=== PATIENT | male | born 1975 | race Caucasian/White ===

== ENCOUNTER 2018-04-20 01:29 | Emergency (ER) | payer OTHER, MEDICAID, SELFPAY ==
[2018-04-20 01:47] VITALS: BP 99/51; PULSE 81; RESP 20; TEMP 36.9; O2SAT 97; BMI 40.2
--- NOTE | 2018-04-20 01:57 | ED.BACK ---
HPI - Back Pain/Injury General Chief Complaint: Back Pain/Injury Stated Complaint: on dialysis, back pain, recent surgery Time Seen by Provider: 04/20/18 01:57 Source: patient Mode of arrival: ambulatory Limitations: no limitations History of Present Illness HPI Narrative: The patient presents with left lower back pain that started yesterday. The pain is judged as 5/10 on a 1-10 scale. With this he has had chills but no fever. He is eating. He is taking fluids well. He has a colostomy in place. Last month he suffered a bowel perforation from diverticulitis. He became septic, and was released from [facility] never it only days ago after a prolonged hospitalization, that included the colostomy. He also has a history of kidney stones. He has no scrotal tenderness, dysuria or hematuria associated with this pain. Related Data Home Medications Medication Instructions Recorded Confirmed lamotrigine [Lamictal] 100 mg PO BID #0 10/08/16 04/20/18 citalopram 20 mg PO DAILY 04/20/18 04/20/18 furosemide 80 mg PO DAILY 04/20/18 04/20/18 lorazepam 0.5 mg PO DAILY 04/20/18 04/20/18 metoprolol tartrate 75 mg PO DAILY 04/20/18 04/20/18 Previous Rx's Medication Instructions Recorded albuterol sulfate [Ventolin HFA] 2 puff INH QID #1 ea 04/19/17 Allergies Allergy/AdvReac Type Severity Reaction Status Date / Time acetaminophen [From PERCOCET] Allergy Intermediate Unverified 08/13/17 12:44 oxycodone [From PERCOCET] Allergy Intermediate Unverified 08/13/17 12:44 pineapple [PINEAPPLE] Allergy Unknown Unverified 08/13/17 12:44 Review of Systems Review of Systems All systems reviewed & are unremarkable except as noted in HPI and below Constitutional Reports chills, Denies fever(s), Denies lethargy and Reports weakness ENT Ears, Nose, Mouth, and Throat: Denies mouth pain, Denies neck pain and Denies sore throat Cardiovascular Denies chest pain, Denies irregular heart rhythm, Denies lightheadedness, Denies palpitations, Denies dyspnea, Denies dyspnea on exertion and Denies orthopnea Respiratory Denies cough, Denies dyspnea, Denies dyspnea on exertion and Denies wheezing Gastrointestinal Gastrointestinal: Denies abdominal pain, Denies change in bowel habits, Denies nausea and Denies vomiting Genitourinary Denies hematuria, Denies genital pain, Denies dysuria, Reports flank pain, Denies urinary frequency and Denies urinary urgency Musculoskeletal Reports as per HPI, Reports back pain and Denies neck pain Integumentary/Breasts Denies erythema and Denies rash Neurologic Reports weakness Psychiatric Denies anxiety and Denies depression Endocrine Denies palpitations Allergic/Immunologic Denies wheezing PFSH Medical History Colostomy present (Acute) Depression (Acute) Diverticulitis of colon with perforation (Acute) Hypertension (Acute) Kidney stone (Acute) Social History Smoking Status: Never smoker Exam Initial Vital Signs Initial Vital Signs: Vital Signs Temperature 98.4 F 04/20/18 01:47 Pulse Rate 81 04/20/18 01:47 Respiratory Rate 20 04/20/18 01:47 Blood Pressure 99/51 L 04/20/18 01:47 Pulse Oximetry 97 04/20/18 01:47 Const General: cooperative, well developed and No acute distress Nutritional Appearance: well nourished Orientation: alert, awake, oriented x3 and not confused [facility] Head: normocephalic and atraumatic Nose: external nose normal Face and sinus: face symmetric Mouth: oral mucosae normal and moist mucous membranes Throat: posterior oropharynx normal Eyes Conjunctivae: conjunctivae normal Chest Chest: normal inspection of the chest Resp Effort & Inspection: normal respiratory effort and able to speak in complete sentences Auscultation: clear to auscultation bilaterally, no rales, no rhonchi and no wheezes Cardio Rate: regular rate Rhythm: regular rhythm Heart Sounds: S1 normal, S2 normal, no click, no gallops, no murmurs and no rubs Pulses: normal peripheral pulses GI Inspection: non-distended and other (Colostomy in the left mid abdomen) Palpation: soft, no hepatosplenomegaly, No guarding, No pulsatile mass and No tender Auscultation: normal bowel sounds Back/Spine/Pelvis Back: No CVA tenderness Skin General: no rashes or lesions noted, No jaundice and No petechiae Neuro General: alert, oriented x3 and no focal motor deficits Speech: speech normal Extrem General: full ROM and no clubbing, cyanosis or edema Course Orders Ordered: ED Orders 04/20/18 02:10 Complete Blood Count AUTO DIFF Stat Comprehensive Metabolic Panel Stat Lactate (Lactic Acid) Stat Lipase Stat Prothrombin Time INR Stat 04/20/18 03:33 CT abdomen pelvis w con Stat Sodium Chloride (Normal Saline 0.9%) 1,000 mls @ 250 mls/hr IV CONT JENNIFER Last Admin: 04/20/18 03:50 Dose: 250 mls/hr Discontinued Medications Hydromorphone HCl (Dilaudid) 1 mg IV NOW ONE Stop: 04/20/18 02:30 Last Admin: 04/20/18 02:31 Dose: 1 mg Sodium Chloride (Normal Saline 0.9%) 1,000 mls @ 1,000 mls/hr IV BOLUS ONE Stop: 04/20/18 03:02 Last Infusion: 04/20/18 03:51 Dose: 0 mls/hr Admin: 04/20/18 02:25 Dose: 1,000 mls/hr Vital Signs - 8 hr 04/20/18 01:47 04/20/18 02:18 04/20/18 03:43 Temperature 98.4 F Pulse Rate 81 80 82 Respiratory Rate 20 17 16 Blood Pressure 99/51 L Blood Pressure [Right Arm] 117/84 105/56 L Pulse Oximetry 97 99 97 04/20/18 04:52 Temperature Pulse Rate 83 Respiratory Rate 17 Blood Pressure Blood Pressure [Right Arm] 127/75 Pulse Oximetry 98 MDM - Back Pain/Injury Lab Data Result diagrams: 04/20/18 02:10 04/20/18 02:10 Lab Results 04/20/18 04/20/18 04/20/18 Range/Units 02:10 02:10 02:10 WBC 8.5 (4.5-11.0) X10^3/uL RBC 3.79 L (4.5-5.9) X10^6/uL Hgb 10.4 L (13.5-17.5) g/dL Hct 30.4 L (41-53) % MCV 80.0 (80-100) fL MCH 27.5 (26-34) PG MCHC 34.3 (30-36) % RDW 15.3 H (11.6-14.8) % Plt Count 346 (150-400) X10^3/uL Neut % (Auto) 61.7 (50-75) % Lymph % (Auto) 28.8 (25-40) % [place] % (Auto) 7.5 (3-14) % Eos % (Auto) 1.3 L (2-4) % Baso % (Auto) 0.7 (0-2) % Neut # (Auto) 5200 (8148-3036) /uL PT 12.7 (10.1-12.7) SECONDS INR 1.1 (0.9-1.3) Sodium 141 (137-145) mmol/L Potassium 3.9 (3.4-5.1) mmol/L Chloride 98 (98-107) mmol/L Carbon Dioxide 26 (22-32) mmol/L BUN 26 H (9-20) mg/dL Creatinine 1.50 H (0.66-1.25) mg/dL Estimated GFR 50.8 L (>60) mL/min BUN/Creatinine Ratio 17.3 (6-22) Glucose 102 H (70-100) mg/dL Lactate (0.7-2.1) mmol/L Calcium 9.2 (8.4-10.2) mg/dL Total Bilirubin 0.4 (0.2-1.3) mg/dL AST 29 (17-59) IU/L ALT 38 (21-72) IU/L Alkaline Phosphatase 109 (38-126) U/L Total Protein 7.7 (6.3-8.2) g/dL Albumin 4.1 (3.5-5.0) g/dL Globulin 3.6 (1.7-4.1) g/dL Albumin/Globulin Ratio 1.1 (1.0-2.8) Lipase 360 H (23-300) U/L // Range/Units 02:10 WBC (4.5-11.0) X10^3/uL RBC (4.5-5.9) X10^6/uL Hgb (13.5-17.5) g/dL Hct (41-53) % MCV (80-100) fL MCH (26-34) PG MCHC (30-36) % RDW (11.6-14.8) % Plt Count (150-400) X10^3/uL Neut % (Auto) (50-75) % Lymph % (Auto) (25-40) % [place] % (Auto) (3-14) % Eos % (Auto) (2-4) % Baso % (Auto) (0-2) % Neut # (Auto) (9031-5342) /uL PT (10.1-12.7) SECONDS INR (0.9-1.3) Sodium (137-145) mmol/L Potassium (3.4-5.1) mmol/L Chloride (98-107) mmol/L Carbon Dioxide (22-32) mmol/L BUN (9-20) mg/dL Creatinine (0.66-1.25) mg/dL Estimated GFR (>60) mL/min BUN/Creatinine Ratio (6-22) Glucose (70-100) mg/dL Lactate 1.3 (0.7-2.1) mmol/L Calcium (8.4-10.2) mg/dL Total Bilirubin (0.2-1.3) mg/dL AST (17-59) IU/L ALT (21-72) IU/L Alkaline Phosphatase (38-126) U/L Total Protein (6.3-8.2) g/dL Albumin (3.5-5.0) g/dL Globulin (1.7-4.1) g/dL Albumin/Globulin Ratio (1.0-2.8) Lipase (23-300) U/L Urine Dip Bedside Urine Glucose Negative Bedside Urine Bilirubin - Negative Bedside Urine Ketone - Negative Urine Specific [place] 1.020 Bedside Urine Occult Blood - Negative Bedside Urine pH 6.0 Bedside Urine Protein - Negative Bedside Urine Urobilinogen - Negative Bedside Urine Nitrite - Negative Bedside Urine Leukocytes - Negative Esterase Imaging Data CT scan - abdomen: Radiologist's impression: Contact CT of the abdomen and pelvis shows postoperative findings of partial colectomy a left-sided colostomy. There is no evidence of bowel obstruction, appendicitis, free air or free fluid. Mild splenomegaly. Discharge Plan Departure Patient Disposition: Home Clinical Impression: Lumbago Instructions: DI for Low Back Pain Activity Restrictions/Additional Instructions: Tylenol 2 tablets every 4 hours as needed for pain. You may also use Advil, I would use this on a limited basis. Recheck with her doctor in 1-2 weeks if symptoms persist. Return here if needed. Prescriptions: No Action lamotrigine [Lamictal] 100 MG tablet 100 mg PO BID Qty: 0 RF: 0 albuterol sulfate [Ventolin HFA] 90 MCG/PUFF HFA aerosol inhaler 2 puff INH QID Qty: 1 RF: 0 citalopram 10 mg tablet 20 mg PO DAILY RF: 0 furosemide 80 mg tablet 80 mg PO DAILY RF: 0 lorazepam 0.5 mg tablet 0.5 mg PO DAILY RF: 0 metoprolol tartrate 50 mg tablet 75 mg PO DAILY RF: 0
[2018-04-20 02:18] VITALS: BP 117/84; PULSE 80; RESP 17; O2SAT 99
[2018-04-20 02:24] LABS: Add Manual Diff / Slide Review NO; Basophils Percent Auto 0.7 % (0-2); Eosinophils Percent Auto 1.3 % (2-4); Hematocrit 30.4 % (41-53); Hemoglobin 10.4 g/dL (13.5-17.5); Lymphocytes Percent Auto 28.8 % (25-40); Mean Corpuscular HGB Conc 34.3 % (30-36); Mean Corpuscular Hemoglobin 27.5 PG (26-34); Monocytes Percent Auto 7.5 % (3-14); Neutrophils Absolute Auto 5200 /uL (1500-7000); Neutrophils Percent Auto 61.7 % (50-75); Platelet Count 346 X10^3/uL (150-400); Red Blood Cell Count 3.79 X10^6/uL (4.5-5.9); Red Cell Distribution Width 15.3 % (11.6-14.8); White Blood Cell Count 8.5 X10^3/uL (4.5-11.0)
[2018-04-20] MEDS: SODIUM CHLORIDE 0.9% 1,000 ML 1000 ML IV (02:25)
[2018-04-20 02:31] LABS: INR 1.1 (0.9-1.3); Prothrombin Time 12.7 SECONDS (10.1-12.7)
[2018-04-20] MEDS: HYDROMORPHONE 1 MG INJ IV (02:31)
[2018-04-20 02:32] LABS: Alanine Aminotransferase 38 IU/L (21-72); Albumin 4.1 g/dL (3.5-5.0); Albumin Globulin Ratio 1.1 (1.0-2.8); Alkaline Phosphatase 109 U/L (38-126); Aspartate Aminotransferase 29 IU/L (17-59); BUN Creatinine Ratio 17.3 (6-22); Bilirubin Total 0.4 mg/dL (0.2-1.3); Blood Urea Nitrogen 26 mg/dL (9-20); Calcium 9.2 mg/dL (8.4-10.2); Carbon Dioxide 26 mmol/L (22-32); Chloride 98 mmol/L (98-107); Estimated Glomerular Filt Rate 50.8 mL/min (>60); Globulin 3.6 g/dL (1.7-4.1); Glucose 102 mg/dL (70-100); HEMOLYSIS < 15 (0-50); Lipase 360 U/L (23-300); Potassium 3.9 mmol/L (3.4-5.1); Sodium 141 mmol/L (137-145); Total Protein 7.7 g/dL (6.3-8.2)
[2018-04-20 02:33] LABS: Lactate (Lactic Acid) 1.3 mmol/L (0.7-2.1)
--- NOTE | 2018-04-20 03:33 | DI.CT.S_ITS ---
PROCEDURE: CT ABDOMEN PELVIS W CON INDICATIONS: left lower back pain, TECHNIQUE: After the administration of oral and intravenous contrast, 5 mm thick sections acquired from the diaphragms to the symphysis. 5 mm thick coronal and sagittal reformats were performed. For radiation dose reduction, the following was used: automated exposure control, adjustment of mA and/or kV according to patient size. COMPARISON: [facility], CT, KIDNEY/ URETER/BLADDER, 01/18/2017, 21:02. FINDINGS: Image quality: Excellent. ABDOMEN: Lung bases: Left posterior lower lobe consolidation is seen. There is background bibasilar atelectasis/scarring. Solid organs: Liver is normal in size and enhancement. Gallbladder negative. Biliary system is non-dilated. Pancreas enhances normally. Spleen is mildly enlarged. No adrenal nodules. Kidneys are normal in size and enhancement, without hydronephrosis. Peritoneum and bowel: Postsurgical changes related to left-sided colostomy. No abscess identified. No evidence of bowel obstruction. No free fluid or air. The appendix is within normal limits. On image 82 series 2 there is a possibly postoperative perirectal 10 mm hematoma versus complex seroma, although cannot entirely exclude lymph node. Nodes and vessels: No retroperitoneal or mesenteric adenopathy. Aorta and inferior vena cava are normal in caliber. Miscellaneous: No ventral hernias. PELVIS: Genitourinary: Bladder wall thickness is normal. Miscellaneous: Small bilateral fat containing inguinal hernias or adenopathy. Bones: No suspicious bony lesions. No vertebral body compression fractures. IMPRESSION: Left posterior lower lobe consolidation, which could reflect aspiration or pneumonia. Please correlate clinically. Postsurgical changes as above related to left-sided colostomy. 10 mm perirectal soft tissue attenuation which could represent postoperative seroma or hematoma, however cannot exclude lymph node. Recommend clinical correlation and continued surveillance on subsequent CT examinations. Normal appendix. No abscess. Mild splenomegaly. Dictated by: Alex Shannon M.D. on 04/20/2018 at 8:30 Approved by: Alex Shannon M.D. on 04/20/2018 at 8:41
[2018-04-20 03:43] VITALS: BP 105/56; PULSE 82; RESP 16; O2SAT 97
--- NOTE | 2018-04-20 03:43 | PC.NURSE ---
Oral contrast started 339
[2018-04-20] MEDS: SODIUM CHLORIDE 0.9% 1,000 ML 250 ML IV (03:50)
[2018-04-20 04:52] VITALS: BP 127/75; PULSE 83; RESP 17; O2SAT 98
[2018-04-20 05:28] VITALS: BP 129/80; PULSE 80; RESP 16; TEMP 36.6; O2SAT 97
== END 2018-04-20 05:20 | disposition home or self-care (01) ==
PROVIDERS: Emergency Provider Emergency Medicine
DX: M54.5 Low back pain (principal)
CPT/HCPCS: 36591; 74177; 80053; 81003; 83605; 83690; 85025; 85610; 96361; 96374; 99283; 99285; J1170; Q9967

== ENCOUNTER 2018-06-21 22:45 | Emergency (ER) | payer OTHER, MEDICAID, SELFPAY ==
[2018-06-21 23:01] VITALS: BP 140/81; PULSE 71; RESP 16; TEMP 36.4; O2SAT 96; BMI 40.7
[2018-06-22] VITALS (7 sets, daily range): BP systolic 128–151; BP diastolic 44–87; PULSE 68–78; RESP 15–18; TEMP 36.4; O2SAT 95–98
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
[2018-06-22] MEDS: HYDROMORPHONE 1 MG INJ IV ×2 (01:48→05:16)
[2018-06-22] MEDS: SODIUM CHLORIDE 0.9% 1,000 ML 200 ML IV (01:49)
[2018-06-22 02:03] LABS: Add Manual Diff / Slide Review NO; Basophils Absolute Auto 0 /uL (0-100); Basophils Percent Auto 0.7 % (0-2); Eosinophils Absolute Auto 100 /uL (0-450); Eosinophils Percent Auto 1.6 % (2-4); Hematocrit 35.4 % (41-53); Lymphocytes Absolute Auto 2400 /uL (1100-4500); Lymphocytes Percent Auto 34.8 % (25-40); Mean Corpuscular HGB Conc 33.8 % (30-36); Mean Corpuscular Hemoglobin 27.1 PG (26-34); Mean Corpuscular Volume 80.3 fL (80-100); Monocytes Absolute Auto 700 /uL (0-900); Monocytes Percent Auto 9.7 % (3-14); Neutrophils Absolute Auto 3600 /uL (1500-7000); Neutrophils Percent Auto 53.2 % (50-75); Platelet Count 253 X10^3/uL (150-400); Red Blood Cell Count 4.42 X10^6/uL (4.5-5.9); Red Cell Distribution Width 16.1 % (11.6-14.8); White Blood Cell Count 6.8 X10^3/uL (4.5-11.0)
[2018-06-22 02:10] LABS: Alanine Aminotransferase 20 IU/L (21-72); Albumin Globulin Ratio 1.2 (1.0-2.8); Alkaline Phosphatase 74 U/L (38-126); Aspartate Aminotransferase 24 IU/L (17-59); BUN Creatinine Ratio 10.9 (6-22); Bilirubin Total 0.4 mg/dL (0.2-1.3); Blood Urea Nitrogen 12 mg/dL (9-20); Calcium 8.9 mg/dL (8.4-10.2); Carbon Dioxide 26 mmol/L (22-32); Chloride 104 mmol/L (98-107); Estimated Glomerular Filt Rate > 60.0 mL/min (>60); Globulin 3.4 g/dL (1.7-4.1); Glucose 94 mg/dL (70-100); HEMOLYSIS < 15 (0-50); Sodium 138 mmol/L (137-145); Total Protein 7.4 g/dL (6.3-8.2)
[2018-06-22 02:13] LABS: Prothrombin Time 11.6 SECONDS (10.1-12.7)
[2018-06-22] MEDS: AMOXICILLIN/CLAV 875/125 MG 1 TAB PO (05:10)
[2018-06-22] MEDS: TRAMADOL 50 MG PREPACK 1 BOTTLE MISC (05:10)
== END 2018-06-22 05:33 | disposition home or self-care (01) ==
PROVIDERS: Emergency Provider Emergency Medicine
DX: S39.011A Strain of muscle, fascia and tendon of abdomen, initial encounter (principal); J18.1 Lobar pneumonia, unspecified organism; W23.0XXA Caught, crushed, jammed, or pinched between moving objects, initial encounter
CPT/HCPCS: 36591; 74177; 80053; 81003; 85025; 85610; 96361; 96374; 96376; 99283; 99285; J1170; Q9967

== ENCOUNTER 2020-10-16 14:49 | Emergency (ER) | payer OTHER, MEDICAID, SELFPAY ==
[2020-10-16 14:59] VITALS: BP 117/66; PULSE 72; RESP 18; TEMP 36.9; O2SAT 96
--- NOTE | 2020-10-16 15:05 | DI.RAD.S_ITS ---
PROCEDURE: XR CHEST 1V INDICATIONS: Chest pain TECHNIQUE: One view of the chest was acquired. COMPARISON: [facility], , CHEST 2 VIEW, 02/03/2017, 8:36. FINDINGS: Surgical changes and devices: None. Lungs and pleura: Lungs are clear. No pleural effusions or pneumothorax. Mediastinum: Mediastinal contours appear normal. Heart size is normal. Bones and chest wall: No suspicious bony lesions. Overlying soft tissues appear unremarkable. IMPRESSION: No acute cardiopulmonary process demonstrated radiographically. Dictated by: Anton Khan M.D. on 10/16/2020 at 15:26 Approved by: Anton Khan M.D. on 10/16/2020 at 15:30
[2020-10-16 15:51] LABS: Alanine Aminotransferase 31 IU/L (<50); Albumin 3.9 g/dL (3.5-5.0); Albumin Globulin Ratio 1.2 (1.0-2.8); Alkaline Phosphatase 75 U/L (38-126); Aspartate Aminotransferase 31 IU/L (17-59); BUN Creatinine Ratio 17.4 (6-22); Bilirubin Total 0.4 mg/dL (0.2-1.3); Blood Urea Nitrogen 19 mg/dL (9-20); Carbon Dioxide 26 mmol/L (22-32); Chloride 104 mmol/L (98-107); Creatine Kinase 51 U/L (55-170); Estimated Glomerular Filt Rate > 60.0 mL/min (>60); Globulin 3.3 g/dL (1.7-4.1); Glucose 101 mg/dL (70-100); HEMOLYSIS 39 (0-50); Lipase 79 U/L (23-300); Potassium 4.3 mmol/L (3.4-5.1); Sodium 139 mmol/L (137-145); Total Protein 7.2 g/dL (6.3-8.2)
[2020-10-16 16:02] LABS: Troponin I < 0.012 ng/mL (0.01-0.034)
[2020-10-16 16:05] LABS: Add Manual Diff / Slide Review NO; Basophils Absolute Auto 100 /uL (0-100); Basophils Percent Auto 0.7 % (0-2); Eosinophils Absolute Auto 100 /uL (0-450); Eosinophils Percent Auto 1.1 % (2-4); Hematocrit 43.3 % (41-53); Hemoglobin 14.5 g/dL (13.5-17.5); Lymphocytes Absolute Auto 2800 /uL (1100-4500); Mean Corpuscular HGB Conc 33.6 % (30-36); Mean Corpuscular Volume 83.2 fL (80-100); Monocytes Absolute Auto 600 /uL (0-900); Monocytes Percent Auto 7.1 % (3-14); Neutrophils Absolute Auto 4900 /uL (1500-7000); Neutrophils Percent Auto 58.1 % (50-75); Platelet Count 220 X10^3/uL (150-400); Red Cell Distribution Width 15.1 % (11.6-14.8); White Blood Cell Count 8.5 X10^3/uL (4.5-11.0)
[2020-10-16 19:36] VITALS: BP 103/59; BP 115/62; BP 98/59; PULSE 73; PULSE 78; PULSE 82
--- NOTE | 2020-10-16 19:55 | ED_ITS ---
HPI - General Adult General Chief complaint: Syncope Stated complaint: I stand up I fall down for a month Time Seen by Provider: 10/16/20 19:54 Source: patient Mode of arrival: Ambulatory Limitations: no limitations History of Present Illness HPI narrative: Patient is a 44-year-old male who is here with family for evaluation of episodes that have occasionally been happening over the past month. He states that he has periods of time where he becomes very lightheaded and dizzy and has to sit down. They very often happen when he is changing positions but is also happen when he has been walking and then stops suddenly. He denies any chest pain during the time. No shortness of breath. No palpitations. He describes the symptoms as more of a lightheadedness rather than a room spinning/vertigo sensation. No headaches. He does have a history of high blood pressure. Is on metoprolol but has not had any changes to this medication recently. Has not tried anything for his symptoms peer reason he is in the emergency department today is that prior to arrival he was sitting in a chair and stood up in the symptoms happened again so family persuaded him to come to the emergency department for evaluation. Related Data Home Medications Medication Instructions Recorded Confirmed lamotrigine [Lamictal] 100 mg PO BID #0 10/08/16 04/20/18 citalopram 20 mg PO DAILY 04/20/18 04/20/18 furosemide 80 mg PO DAILY 04/20/18 04/20/18 lorazepam 0.5 mg PO DAILY 04/20/18 04/20/18 metoprolol tartrate 75 mg PO DAILY 04/20/18 04/20/18 Previous Rx's Medication Instructions Recorded albuterol sulfate [Ventolin HFA] 2 puff INH QID #1 ea 04/19/17 amoxicillin-pot clavulanate 1 tab PO BID #14 tab 06/22/18 [Augmentin] tramadol 50 mg PO Q6H PRN #14 tab 06/22/18 Allergies Allergy/AdvReac Type Severity Reaction Status Date / Time acetaminophen [From PERCOCET] Allergy Intermediate Unverified 08/13/17 12:44 oxycodone [From PERCOCET] Allergy Intermediate Unverified 08/13/17 12:44 pineapple [PINEAPPLE] Allergy Unknown Unverified 04/11/18 12:44 Review of Systems Constitutional Constitutional: Denies fever(s) and Denies headache(s) Eyes Eyes: Reports system reviewed and no additional complaints, except as documented ENT Ears, Nose, Mouth, and Throat: Denies vertigo, Reports dizziness, Denies headache(s), Denies sinus pressure and Denies sore throat Cardiovascular Cardiovascular: Denies chest pain, Denies rapid heart rate and Denies dyspnea Respiratory Respiratory: Denies dyspnea Gastrointestinal Gastrointestinal: Reports system reviewed and no additional complaints, except as documented Musculoskeletal Musculoskeletal: Reports system reviewed and no additional complaints, except as documented Integumentary/Breasts Skin/Breast: Reports system reviewed and no additional complaints, except as documented Neurologic Neurologic: Denies vertigo, Reports dizziness and Denies headache(s) Hematologic/Lymphatic On Anticoagulants: No Allergic/Immunologic Allergic/Immunologic: Reports system reviewed and no additional complaints, except as documented Patient History Medical History Colostomy present Depression Diverticulitis of colon with perforation Hypertension Kidney stone Social History Smoking Status: Never smoker Smoking Status: Never smoker alcohol intake frequency: 0-2 drinks per day Substance Use Type: does not use Exam Initial Vital Signs Initial Vital Signs: Vital Signs Temperature 98.4 F 10/16/20 14:59 Pulse Rate 72 10/16/20 14:59 Respiratory Rate 18 10/16/20 14:59 Blood Pressure 117/66 10/16/20 14:59 Pulse Oximetry 96 10/16/20 14:59 Const General: cooperative and comfortable Limitations: mental status not altered [facility] Head: normal to inspection and normocephalic Resp Effort & Inspection: normal respiratory effort Auscultation: clear to auscultation bilaterally Cardio Rate: regular rate Rhythm: regular rhythm GI Inspection: non-distended Skin Lesions: no lesions Rashes: no rashes Neuro General: patient alert, patient awake and patient oriented x3 Cognition: normal cognition Speech: speech normal Extrem General: normal to inspection Psych Appearance: grossly normal and well kempt Course Orders Ordered: ED Orders 10/16/20 15:05 XR chest 1V Stat EKG-12 Lead Stat 10/16/20 15:32 Complete Blood Count AUTO DIFF Stat Comprehensive Metabolic Panel Stat Lipase Stat Troponin & CK Cardiac Panel Stat Vital Signs Vital signs: Vital Signs - 8 hr 10/16/20 19:36 Pulse Rate [Orthostatic Lying] 78 Pulse Rate [Orthostatic Sitting] 73 Pulse Rate [Orthostatic Standing] 82 Blood Pressure [Orthostatic Lying] 103/59 L Blood Pressure [Orthostatic Sitting] 98/59 L Blood Pressure [Orthostatic Standing] 115/62 Medical Decision Making Medical Records Medical records reviewed: Yes I reviewed the patient's medical records. Lab Data Lab results reviewed: Yes I reviewed the patient's lab results. Result diagrams: 10/16/20 15:32 10/16/20 15:32 Labs: Lab Results 10/16/20 10/16/20 Range/Units 15:32 15:32 WBC 8.5 (4.5-11.0) X10^3/uL RBC 5.20 (4.5-5.9) X10^6/uL Hgb 14.5 (13.5-17.5) g/dL Hct 43.3 (41-53) % MCV 83.2 (80-100) fL MCH 28.0 (26-34) PG MCHC 33.6 (30-36) % RDW 15.1 H (11.6-14.8) % Plt Count 220 (150-400) X10^3/uL Neut % (Auto) 58.1 (50-75) % Lymph % (Auto) 33.0 (25-40) % Pike % (Auto) 7.1 (3-14) % Eos % (Auto) 1.1 L (2-4) % Baso % (Auto) 0.7 (0-2) % Neut # (Auto) 4900 (0586-9428) /uL Lymph # (Auto) 2800 (2000-2437) /uL Pike # (Auto) 600 (0-900) /uL Eos # (Auto) 100 (0-450) /uL Baso # (Auto) 100 (0-100) /uL Sodium 139 (137-145) mmol/L Potassium 4.3 (3.4-5.1) mmol/L Chloride 104 (98-107) mmol/L Carbon Dioxide 26 (22-32) mmol/L BUN 19 (9-20) mg/dL Creatinine 1.09 (0.66-1.25) mg/dL Estimated GFR > 60.0 (>60) mL/min BUN/Creatinine Ratio 17.4 (6-22) Glucose 101 H (70-100) mg/dL Calcium 9.0 (8.4-10.2) mg/dL Total Bilirubin 0.4 (0.2-1.3) mg/dL AST 31 (17-59) IU/L ALT 31 (<50) IU/L Alkaline Phosphatase 75 (38-126) U/L Total Creatine Kinase 51 L (55-170) U/L CK-MB (CK-2) TNP CK-MB (CK-2) Rel Index TNP Troponin I < 0.012 (0.01-0.034) ng/mL Total Protein 7.2 (6.3-8.2) g/dL Albumin 3.9 (3.5-5.0) g/dL Globulin 3.3 (1.7-4.1) g/dL Albumin/Globulin Ratio 1.2 (1.0-2.8) Lipase 79 (23-300) U/L Imaging Data Chest x-ray: Radiologist's Impression: [address] [id number] ReportSigned Patient: Apolinar Gar JMR#: [id number]: 1975Acct:[id number]/Sex: 44 / MDate of Service: 10/16/20Loc: EDAccession Number: [id number] Procedure: XR chest 1V Ordering Provider: Yaneth De Guzman D.O. PROCEDURE: XR CHEST 1V INDICATIONS: Chest pain TECHNIQUE: One view of the chest was acquired. COMPARISON: [facility], CHEST 2 VIEW, 02/03/2017, 8:36. FINDINGS: Surgical changes and devices: None. Lungs and pleura: Lungs are clear. No pleural effusions or pneumothorax. Mediastinum: Mediastinal contours appear normal. Heart size is normal. Bones and chest wall: No suspicious bony lesions. Overlying soft tissues appear unremarkable. IMPRESSION: No acute cardiopulmonary process demonstrated radiographically. Dictated by: Anton Khan M.D. on 10/16/2020 at 15:26 Approved by: Anton Khan M.D. on 10/16/2020 at 15:30 ECG Data Attestation: I personally reviewed and interpreted this ECG as follows: Prior ECG tracings: not available for review Interpretation: Sinus rhythm Ventricular rate is 70 Normal axis Normal QRS Normal QTC No ST T wave changes MDM Narrative Medical decision making narrative: Patient is not orthostatic with his blood pressures. His EKG and chest x-ray are unremarkable. Labs are unremarkable as well afebrile. Has a benign exam. I suspect that his symptoms are vasovagal however we did discuss that potentially he is on too much metoprolol. And potentially this is a blood pressure issue. We did discuss taking his blood pressure at home and recording values. We also discussed potential talking with his primary doctor about obtaining a Holter monitor. We will hold on further workup for now. He was given return precautions and follow-up instructions. He expressed understanding and agreement. Discharge Plan Departure Patient Disposition: Home Clinical Impression: Episodic lightheadedness Instructions: DI for Dizziness-Nonvertigo Activity Restrictions/Additional Instructions: Recommend that you continue to take all of your medications as directed and also recommend that you start taking your blood pressure at home. If your symptoms continue also recommend you talk with your primary doctor about the indications for a Holter monitor. Return to the emergency department for any new or worsening symptoms Prescriptions: No Action lamotrigine [Lamictal] 100 MG tablet 100 mg PO BID Qty: 0 RF: 0 albuterol sulfate [Ventolin HFA] 90 MCG/PUFF HFA aerosol inhaler 2 puff INH QID Qty: 1 RF: 0 tramadol 50 mg tablet 50 mg PO Q6H PRN (Reason: pain) Qty: 14 RF: 0 amoxicillin-pot clavulanate [Augmentin] 875-125 mg tablet 1 tab PO BID Qty: 14 RF: 0 citalopram 10 mg tablet 20 mg PO DAILY RF: 0 furosemide 80 mg tablet 80 mg PO DAILY RF: 0 lorazepam 0.5 mg tablet 0.5 mg PO DAILY RF: 0 metoprolol tartrate 50 mg tablet 75 mg PO DAILY RF: 0
== END 2020-10-16 20:21 | disposition home or self-care (01) ==
PROVIDERS: Emergency Medicine; Emergency Provider Emergency Medicine
DX: R42 Dizziness and giddiness (principal); R07.9 Chest pain, unspecified
CPT/HCPCS: 36415; 71045; 80053; 82550; 83690; 84484; 85025; 93005; 93010; 99284

== ENCOUNTER 2024-03-27 20:37 | Emergency (ER) | payer OTHER, MEDICAID, SELFPAY ==
[2024-03-27 20:49] VITALS: BP 127/70; PULSE 72; RESP 18; TEMP 36.2; O2SAT 95; BMI 49.6
--- NOTE | 2024-03-27 21:53 | ED.BACK ---
HPI - Back Pain/Injury General Chief Complaint: Back Pain/Injury Stated Complaint: severe back pain, t-3 Time Seen by Provider: 03/27/24 21:17 Source: patient History of Present Illness HPI Narrative: 48yoM presents for L sided lumbar pain. Woke up 3 days ago with pain, not relieved with tylenol or icy-hot. Has hx of CKD and cannot take NSAIDs. Worse with movement and palpation. Denies bowel/bladder incontinence, saddle anesthesia, lower extremity weakness Related Data Home Medications Medication Instructions Recorded Confirmed lamotrigine 100 mg tablet 100 mg PO BID ##0 10/08/16 04/20/18 (Lamictal) citalopram 10 mg tablet 20 mg PO DAILY 04/20/18 04/20/18 furosemide 80 mg tablet 80 mg PO DAILY 04/20/18 04/20/18 lorazepam 0.5 mg tablet 0.5 mg PO DAILY 04/20/18 04/20/18 metoprolol tartrate 50 mg tablet 75 mg PO DAILY 04/20/18 04/20/18 Previous Rx's Medication Instructions Recorded albuterol sulfate 90 mcg/actuation 2 puff INH QID #1 ea 04/19/17 aerosol inhaler (Ventolin HFA) amoxicillin 875 mg-potassium 1 tab PO BID #14 tabs 06/22/18 clavulanate 125 mg tablet (Augmentin) tramadol 50 mg tablet 50 mg PO Q6H PRN pain #14 tabs 06/22/18 cyclobenzaprine 10 mg tablet 10 mg PO TID PRN muscle spasm #20 03/28/24 tabs methylprednisolone 4 mg tablets in See Rx Instructions PO .COMPLEX 03/28/24 a dose pack (Medrol (Rosalio)) #21 ea Allergies Allergy/AdvReac Type Severity Reaction Status Date / Time acetaminophen [From PERCOCET] Allergy Intermediate Unverified 08/13/17 12:44 oxycodone [From PERCOCET] Allergy Intermediate Unverified 08/13/17 12:44 pineapple [PINEAPPLE] Allergy Unknown Unverified 08/13/17 12:44 Patient History Medical History Colostomy present Depression Hypertension Kidney stone Diverticulitis of colon with perforation Social History Smoking Status: Never smoker Smoking Status: Never smoker alcohol intake frequency: 0-2 drinks per day Substance Use Type: does not use Exam Initial Vital Signs Initial Vital Signs: Vital Signs Temperature 97.2 F L 03/27/24 20:49 Pulse Rate 72 03/27/24 20:49 Respiratory Rate 18 03/27/24 20:49 Blood Pressure 127/70 03/27/24 20:49 Pulse Oximetry 95 03/27/24 20:49 Oxygen Delivery Method Room Air 03/27/24 20:49 Const: Awake, alert, no acute distress, obese MSK: no midline tenderness, generalized tenderness over L lateral lumbar region/hip Skin: Warm, Dry, intact, no rashes Neuro: AO x3, CN II-XII grossly intact, moves all extremities Course Orders Ordered: Discontinued Medications Dexamethasone (Dexamethasone 10 Mg/Ml Vial) 10 mg IV NOW ONE Stop: 03/27/24 21:54 Last Admin: 03/27/24 22:24 Dose: 10 mg Documented By: GARRY Diazepam (Diazepam 10 Mg/2 Ml Syringe) 3 mg IV NOW ONE Stop: 03/27/24 21:54 Last Admin: 03/27/24 22:28 Dose: 3 mg Documented By: GARRY Acetaminophen (Ofirmev) 1,000 mg in 100 mls @ 400 mls/hr IV NOW ONE Stop: 03/27/24 22:07 Last Infusion: 03/27/24 23:05 Dose: Infused Documented By: Admin: 03/27/24 22:24 Dose: 400 mls/hr Documented By: GARRY Lidocaine (Remove Lidocaine Patch) 1 each TOP BEDTIME ONE Stop: 03/27/24 21:54 Last Admin: 03/27/24 23:05 Dose: Not Given Documented By: GARRY Methocarbamol (Methocarbamol 500 Mg Tablet) 1,000 mg PO NOW ONE Stop: 03/27/24 23:28 Last Admin: 03/27/24 23:36 Dose: 1,000 mg Documented By: GARRY Morphine Sulfate (Morphine 4 Mg/Ml Inj) 4 mg IV NOW ONE Stop: 03/27/24 23:28 Last Admin: 03/27/24 23:36 Dose: 4 mg Documented By: GARRY Vital Signs Vital signs: Vital Signs - 8 hr 03/27/24 20:49 03/28/24 00:39 Temperature 97.2 F L Pulse Rate 72 67 Respiratory Rate 18 20 Blood Pressure 127/70 135/71 Pulse Oximetry 95 97 Oxygen Delivery Method Room Air Room Air MDM - Back Pain/Injury Differential Diagnosis Differential diagnosis: Likely lumbar radiculopathy, sciatica and strain of lumbar region MDM Narrative Medical decision making narrative: Well-appearing patient with 3 days of atraumatic lumbar pain. Pain is reproducible over the lower lumbar region near the L hip. No CVA tenderness bilaterally. No s/s of cauda equina. Patient given several medications for pain with improvement in symptoms. Patient discharged with muscle relaxers and steroid taper. Patient states he has been told he's prediabetic in the past - he was counseled that steroids can raise sugars and he should monitor his diet while on these medications. PCP follow up advised. Discharge Plan Departure Patient Disposition: Home Clinical Impression: Strain of lumbar region Instructions: DI for Back Strain or Sprain Activity Restrictions/Additional Instructions: Continue to take Tylenol and use gentle stretching exercises for pain at home. A short course of muscle relaxers and steroids has been sent to the pharmacy. Steroids can temporarily increase your sugars, so be mindful of your diet over the next several days while on this medication. The muscle relaxers may cause drowsiness, so do not take this medication with alcohol or before operating heavy machinery Prescriptions: New cyclobenzaprine 10 mg tablet 10 mg PO TID PRN (Reason: muscle spasm) Qty: 20 0RF methylprednisolone [Medrol (Rosalio)] 4 mg tablets,dose pack See Rx Instructions .ROUTE .COMPLEX Qty: 21 0RF Rx Instructions: for 6 days No Action lamotrigine [Lamictal] 100 MG tablet 100 mg PO BID Qty: 0 albuterol sulfate [Ventolin HFA] 90 MCG/PUFF HFA aerosol inhaler 2 puff INH QID Qty: 1 0RF tramadol 50 mg tablet 50 mg PO Q6H PRN (Reason: pain) Qty: 14 0RF amoxicillin-pot clavulanate [Augmentin] 875-125 mg tablet 1 tab PO BID Qty: 14 0RF citalopram 10 mg tablet 20 mg PO DAILY Patient Comments: TK 1 T PO D furosemide 80 mg tablet 80 mg PO DAILY Patient Comments: TAKE 1 TABLET BY MOUTH 2 TIMES A DAY lorazepam 0.5 mg tablet 0.5 mg PO DAILY metoprolol tartrate 50 mg tablet 75 mg PO DAILY Stand Alone Forms: Patient Portal/API/Survey
[2024-03-27] MEDS: DEXAMETHASONE 10 MG/ML VIAL IV (22:24)
[2024-03-27] MEDS: ACETAMINOPHEN IV 1,000 MG/100 ML VIAL 400 MG IV (22:24)
[2024-03-27] MEDS: diazePAM 10 MG/2 ML SYRINGE 3 MG IV (22:28)
[2024-03-27] MEDS: MORPHINE 4 MG/ML INJ IV (23:36)
[2024-03-27] MEDS: methocarbamoL 500 MG TABLET 1000 MG PO (23:36)
[2024-03-28 00:39] VITALS: BP 135/71; PULSE 67; RESP 20; O2SAT 97
== END 2024-03-28 00:49 | disposition home or self-care (01) ==
PROVIDERS: Emergency Provider Emergency Medicine
DX: S39.012A Strain of muscle, fascia and tendon of lower back, initial encounter (principal); E66.9 Obesity, unspecified; Z68.42 Body mass index [BMI] 45.0-49.9, adult
CPT/HCPCS: 96365; 96375; 99284; J0134; J1100; J2270; J3360

== ENCOUNTER 2024-08-22 18:29 | Emergency (ER) | payer SELFPAY ==
[2024-08-22] VITALS (10 sets, daily range): BP systolic 105–136; BP diastolic 56–76; PULSE 79–100; RESP 18–33; TEMP 36.8; O2SAT 94–98; BMI 50.5
--- NOTE | 2024-08-22 18:40 | EKG_ITS ---
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
--- NOTE | 2024-08-22 18:40 | DI.RAD.S_ITS ---
PROCEDURE: XR CHEST 1V INDICATIONS: chest pain TECHNIQUE: One view of the chest was acquired. COMPARISON: [facility], CR, XR CHEST 1V, 10/16/2020, 15:11. FINDINGS: Surgical changes and devices: None. Lungs and pleura: Low lung volumes Lungs are clear. No pleural effusions or pneumothorax. Mediastinum: Mediastinal contours appear normal. Heart size is normal. Bones and chest wall: No suspicious bony lesions. Overlying soft tissues appear unremarkable. IMPRESSION: No acute cardiopulmonary abnormality is seen. Dictated by: Gabe Khan M.D. on 08/22/2024 at 17:56 Approved by: Gabe Khan M.D. on 08/22/2024 at 17:57
[2024-08-22] MEDS: ASPIRIN 81 MG CHEW TAB 324 MG PO (18:42)
[2024-08-22 19:14] LABS: Add Manual Diff / Slide Review NO; Basophils Absolute Auto 100 /uL (0-100); Basophils Percent Auto 0.7 % (0-2); Eosinophils Absolute Auto 100 /uL (0-450); Eosinophils Percent Auto 0.9 % (2-4); Hematocrit 42.2 % (41-53); Hemoglobin 14.6 g/dL (13.5-17.5); Lymphocytes Absolute Auto 2400 /uL (1100-4500); Lymphocytes Percent Auto 27.3 % (25-40); Mean Corpuscular HGB Conc 34.6 % (30-36); Mean Corpuscular Hemoglobin 28.9 PG (26-34); Mean Corpuscular Volume 83.4 fL (80-100); Monocytes Absolute Auto 500 /uL (0-900); Neutrophils Absolute Auto 5800 /uL (1500-7000); Neutrophils Percent Auto 65.1 % (50-75); Platelet Count 225 X10^3/uL (150-400); Red Blood Cell Count 5.06 X10^6/uL (4.5-5.9); Red Cell Distribution Width 14.9 % (11.6-14.8); White Blood Cell Count 8.9 X10^3/uL (4.5-11.0)
[2024-08-22 19:17] LABS: INR 1.1 (0.9-1.3); Prothrombin Time 12.3 SECONDS (9.4-12.5)
[2024-08-22 19:20] LABS: PTT Partial Thromboplastin Tim 36 SECONDS (25.1-36.5)
[2024-08-22 19:22] LABS: Alanine Aminotransferase 40 IU/L (<50); Albumin 4.2 g/dL (3.5-5.0); Albumin Globulin Ratio 1.3 (1.0-2.8); Alkaline Phosphatase 67 U/L (38-126); Aspartate Aminotransferase 39 IU/L (17-59); BUN Creatinine Ratio 15.5 (6-22); Bilirubin Total 0.6 mg/dL (0.2-1.3); Blood Urea Nitrogen 17 mg/dL (9-20); Calcium 9.1 mg/dL (8.4-10.2); Carbon Dioxide 27 mmol/L (22-32); Chloride 104 mmol/L (98-107); Creatine Kinase 54 U/L (55-170); Estimated Glomerular Filt Rate > 60 mL/min (>60); Globulin 3.3 g/dL (1.7-4.1); Glucose 94 mg/dL (70-100); HEMOLYSIS 37 (0-50); Lipase 96 U/L (23-300); Potassium 4.2 mmol/L (3.4-5.1); Sodium 140 mmol/L (137-145); Total Protein 7.5 g/dL (6.3-8.2)
[2024-08-22 19:34] LABS: NT-proBNP (BNP-Adult 18+) < 20 pg/mL (<125); Troponin I < 0.012 ng/mL (0.01-0.034)
--- NOTE | 2024-08-22 20:22 | ED_ITS ---
HPI - Chest Pain General Chief Complaint: Chest Pain Stated Complaint: Chest/L Arm Pains t-1 Time Seen by Provider: 08/22/24 20:22 Source: patient Mode of arrival: Ambulatory Limitations: no limitations History of Present Illness HPI narrative: 48-year-old male past medical history of angina, hypertension, presents to the emergency department from home for evaluation of left arm pain and chest pain. States that he felt like it was radiating from his left arm, states that it woke him up from sleep last night, he denies any trauma or falls. Denies any blood thinners. He denies any other symptoms such as headache visual disturbances shortness of breath fever chills nausea vomiting abdominal pain or any other GI/ symptoms time. Related Data Home Medications Medication Instructions Recorded Confirmed lamotrigine 100 mg tablet 100 mg PO BID ##0 10/08/16 04/20/18 (Lamictal) citalopram 10 mg tablet 20 mg PO DAILY 04/20/18 04/20/18 furosemide 80 mg tablet 80 mg PO DAILY 04/20/18 04/20/18 lorazepam 0.5 mg tablet 0.5 mg PO DAILY 04/20/18 04/20/18 metoprolol tartrate 50 mg tablet 75 mg PO DAILY 04/20/18 04/20/18 Previous Rx's Medication Instructions Recorded albuterol sulfate 90 mcg/actuation 2 puff INH QID #1 ea 04/19/17 aerosol inhaler (Ventolin HFA) amoxicillin 875 mg-potassium 1 tab PO BID #14 tabs 06/22/18 clavulanate 125 mg tablet (Augmentin) tramadol 50 mg tablet 50 mg PO Q6H PRN pain #14 tabs 06/22/18 cyclobenzaprine 10 mg tablet 10 mg PO TID PRN muscle spasm #20 03/28/24 tabs methylprednisolone 4 mg tablets in See Rx Instructions PO .COMPLEX 03/28/24 a dose pack (Medrol (Rosalio)) #21 ea Allergies Allergy/AdvReac Type Severity Reaction Status Date / Time acetaminophen [From PERCOCET] Allergy Intermediate Verified 08/22/24 18:40 oxycodone [From PERCOCET] Allergy Intermediate Verified 08/22/24 18:40 pineapple [PINEAPPLE] Allergy Unknown Swelling Verified 08/22/24 18:40 of Lip/Tongue/Throat Review of Systems Review of Systems Narrative: General: Denies fever, chills, weight loss HEENT: Denies headache, eye drainage, eye irritation, head trauma, sore throat, voice change Cardiovascular: Positive chest pain, denies palpitations, tachycardia Respiratory: Denies any shortness of breath, cough, wheeze, stridor GI/: Denies any abdominal pain, nausea, vomiting, diarrhea, bright red blood per rectum, melanotic stools, urinary frequency, urinary retention, dysuria, hematuria MSK: Denies any joint pain, muscle pains, swelling Skin: Denies any rashes, lesions, discoloration Neuro: Denies any headache, lightheadedness, dizziness, fainting, weakness Psych: Denies SI/HI Patient History Medical History (Updated 08/22/24 @ 22:23 by Apolinar Francis DO) Colostomy present Depression Hypertension Kidney stone Diverticulitis of colon with perforation Social History Smoking Status: Former smoker Smoking Status: Former smoker alcohol intake frequency: 0-2 drinks per day Exam Initial Vital Signs Initial Vital Signs: Vital Signs Temperature 98.3 F 08/22/24 18:34 Pulse Rate 100 H 08/22/24 18:34 Respiratory Rate 18 08/22/24 18:34 Blood Pressure 113/72 08/22/24 18:34 Pulse Oximetry 95 08/22/24 18:34 Oxygen Delivery Method Room Air 08/22/24 18:34 Course Orders Ordered: ED Orders 08/22/24 18:40 XR chest 1V Stat EKG-12 Lead Stat 08/22/24 19:03 Complete Blood Count AUTO DIFF Stat Comprehensive Metabolic Panel Stat Lipase Stat Magnesium Stat NT-proBNP (BNP-Adult 18+) Stat PTT Partial Thromboplastin Cyrus Stat Prothrombin Time INR Stat Troponin & CK Cardiac Panel Stat 08/22/24 21:20 Trop I [Troponin I] Stat Discontinued Medications Aspirin (Aspirin 81 Mg Chew Tab) 324 mg PO NOW ONE Stop: 08/22/24 18:41 Last Admin: 08/22/24 18:42 Dose: 324 mg Documented By: LINDA Vital Signs Vital signs: Vital Signs - 8 hr 08/22/24 18:34 08/22/24 19:09 08/22/24 19:11 Temperature 98.3 F Pulse Rate 100 H 91 H 91 H Respiratory Rate 18 Blood Pressure 113/72 Pulse Oximetry 95 97 96 Oxygen Delivery Method Room Air 08/22/24 19:11 08/22/24 19:30 08/22/24 19:30 Temperature Pulse Rate 85 Respiratory Rate 27 H Blood Pressure 121/70 113/58 L Pulse Oximetry 96 Oxygen Delivery Method 08/22/24 20:00 08/22/24 20:00 08/22/24 20:30 Temperature Pulse Rate 84 83 Respiratory Rate 25 H 22 Blood Pressure 128/67 Pulse Oximetry 97 94 Oxygen Delivery Method 08/22/24 20:31 08/22/24 20:31 08/22/24 21:00 Temperature Pulse Rate 84 Respiratory Rate 30 H Blood Pressure 133/63 136/76 Pulse Oximetry 96 Oxygen Delivery Method 08/22/24 21:00 08/22/24 21:30 08/22/24 21:30 Temperature Pulse Rate 79 85 Respiratory Rate 21 33 H Blood Pressure 136/68 Pulse Oximetry 94 98 Oxygen Delivery Method 08/22/24 22:00 08/22/24 22:00 Temperature Pulse Rate 80 Respiratory Rate 23 Blood Pressure 105/56 L Pulse Oximetry 95 Oxygen Delivery Method MDM - Chest Pain Differential Diagnosis Differential diagnosis: Likely pneumothorax, stable angina, atypical chest pain, st elevation myocardial infarction, costochondritis, chest pain and other (Pneumonia, electrolyte abnormality,) Lab Data 08/22/24 19:03 08/22/24 19:03 Labs: Lab Results 08/22/24 08/22/24 Range/Units 19:03 21:20 WBC 8.9 (4.5-11.0) X10^3/uL RBC 5.06 (4.5-5.9) X10^6/uL Hgb 14.6 (13.5-17.5) g/dL Hct 42.2 (41-53) % MCV 83.4 (80-100) fL MCH 28.9 (26-34) PG MCHC 34.6 (30-36) % RDW 14.9 H (11.6-14.8) % Plt Count 225 (150-400) X10^3/uL Neut % (Auto) 65.1 (50-75) % Lymph % (Auto) 27.3 (25-40) % Jenkins % (Auto) 6.0 (3-14) % Eos % (Auto) 0.9 L (2-4) % Baso % (Auto) 0.7 (0-2) % Neut # (Auto) 5800 (2074-5832) /uL Lymph # (Auto) 2400 (9229-0253) /uL Jenkins # (Auto) 500 (0-900) /uL Eos # (Auto) 100 (0-450) /uL Baso # (Auto) 100 (0-100) /uL PT 12.3 (9.4-12.5) SECONDS INR 1.1 (0.9-1.3) APTT 36 (25.1-36.5) SECONDS Sodium 140 (137-145) mmol/L Potassium 4.2 (3.4-5.1) mmol/L Chloride 104 (98-107) mmol/L Carbon Dioxide 27 (22-32) mmol/L BUN 17 (9-20) mg/dL Creatinine 1.10 (0.66-1.25) mg/dL Estimated GFR > 60 (>60) mL/min BUN/Creatinine Ratio 15.5 (6-22) Glucose 94 (70-100) mg/dL Calcium 9.1 (8.4-10.2) mg/dL Magnesium 2.0 (1.6-2.3) mg/dL Total Bilirubin 0.6 (0.2-1.3) mg/dL AST 39 (17-59) IU/L ALT 40 (<50) IU/L Alkaline Phosphatase 67 (38-126) U/L Total Creatine Kinase 54 L (55-170) U/L Troponin I < 0.012 < 0.012 (0.01-0.034) ng/mL NT-Pro-B Natriuret Pep < 20 (<125) pg/mL Total Protein 7.5 (6.3-8.2) g/dL Albumin 4.2 (3.5-5.0) g/dL Globulin 3.3 (1.7-4.1) g/dL Albumin/Globulin Ratio 1.3 (1.0-2.8) Lipase 96 (23-300) U/L Imaging Data Chest x-ray: Radiologist's Impression: [address] [address] XRay Report Signed Patient: Apolinar Gar MR#: [id number] : 1975 Acct:[id number] Age/Sex: 48 / M Date of Service: 08/22/24 Loc: ED Accession Number: [id number] Procedure: XR chest 1V Ordering Provider: Apolinar Francis D.O. PROCEDURE: XR CHEST 1V INDICATIONS: chest pain TECHNIQUE: One view of the chest was acquired. COMPARISON: [facility], , XR CHEST 1V, 10/16/2020, 15:11. FINDINGS: Surgical changes and devices: None. Lungs and pleura: Low lung volumes Lungs are clear. No pleural effusions or pneumothorax. Mediastinum: Mediastinal contours appear normal. Heart size is normal. Bones and chest wall: No suspicious bony lesions. Overlying soft tissues appear unremarkable. IMPRESSION: No acute cardiopulmonary abnormality is seen. ECG Data Interpretation: EKG interpreted ED physician sinus 95 beats per minute QTC 444, normal axis nonspecific ST changes no STEMI MDM Narrative Medical decision making narrative: 48-year-old male with a past medical history of hypertension anxiety depression angina presents to the emergency department for left arm pain. He states that yesterday night the pain started in his left arm and radiates to his chest, he states this is similar to when he had been pulled by an ER doctor in 2017 that he was having angina. He states that he had a stress test and echo and everything was normal and never followed up after. He states that he currently has no pain at this time. He states that he has no known trauma or falls. He denies any other symptoms at this time. EKG nonischemic in nature chest x-ray without any acute cardiopulmonary abnormality, no leukocytosis Chem panel unremarkable patient with troponin negative x2, patient with heart score of 2. Patient's symptoms more likely secondary to arm pain rather than chest pain given the fact that he states that the pain or starts in his arm and radiates into his chest. However I did inform patient to follow up with Cardiology in outpatient setting to obtain echo shows test, he was given strict return precautions he verbalized understanding of this and agrees to being discharged home with outpatient follow up Discharge Plan Departure Patient Disposition: Home Clinical Impression: Chest pain, Arm pain, left Instructions: DI for Chest Pain Activity Restrictions/Additional Instructions: Please follow up with Cardiology to obtain a stress test and an echo, please follow up with the primary care doctor Please read the discharge instructions sheet carefully and bring all papers to all doctor follow-up visits, as it may contain information that your doctor may want to see. Disease processes change and evolve, if your symptoms worsen or if you develop any new symptoms that are concerning to you please return for evaluation. Your evaluation today does not show any evidence of any life- threatening/serious illnesses requiring admission to the hospital or surgery. Please follow-up with your doctor for re-evaluation in approximately 1 day. Seek immediate medical attention for any worrisome symptoms. *If you do not have a primary care provider please contact the [facility] Resource line at [phone]. They will ask some questions about your medical history and help get you set up with a doctor in the community. Prescriptions: No Action lamotrigine [Lamictal] 100 MG tablet 100 mg PO BID Qty: 0 albuterol sulfate [Ventolin HFA] 90 MCG/PUFF HFA aerosol inhaler 2 puff INH QID Qty: 1 0RF tramadol 50 mg tablet 50 mg PO Q6H PRN (Reason: pain) Qty: 14 0RF amoxicillin-pot clavulanate [Augmentin] 875-125 mg tablet 1 tab PO BID Qty: 14 0RF citalopram 10 mg tablet 20 mg PO DAILY Patient Comments: TK 1 T PO D furosemide 80 mg tablet 80 mg PO DAILY Patient Comments: TAKE 1 TABLET BY MOUTH 2 TIMES A DAY lorazepam 0.5 mg tablet 0.5 mg PO DAILY metoprolol tartrate 50 mg tablet 75 mg PO DAILY cyclobenzaprine 10 mg tablet 10 mg PO TID PRN (Reason: muscle spasm) Qty: 20 0RF methylprednisolone [Medrol (Rosalio)] 4 mg tablets,dose pack See Rx Instructions .ROUTE .COMPLEX Qty: 21 0RF Rx Instructions: for 6 days Referrals: Champ Garcia MD [Physician] - 3-5 days Stand Alone Forms: Patient Portal/API/Survey
[2024-08-22 22:16] LABS: Troponin I < 0.012 ng/mL (0.01-0.034)
== END 2024-08-22 22:28 | disposition home or self-care (01) ==
PROVIDERS: Emergency Provider Student in an Organized Health Care Education/Training Program
DX: R07.9 Chest pain, unspecified (principal); M79.602 Pain in left arm; I10 Essential (primary) hypertension; Z87.891 Personal history of nicotine dependence
CPT/HCPCS: 36415; 71045; 80053; 82550; 83690; 83735; 83880; 84484; 85025; 85610; 85730; 93005; 99284

== ENCOUNTER 2024-10-31 11:41 | Emergency (ER) | payer OTHER, SELFPAY ==
[2024-10-31] VITALS (15 sets, daily range): BP systolic 106–138; BP diastolic 54–66; PULSE 67–84; RESP 11–23; TEMP 36.1–36.4; O2SAT 93–98; BMI 50.1
--- NOTE | 2024-10-31 11:53 | DI.CT.S_ITS ---
PROCEDURE: CT TRAUMA CHEST ABDOMEN PELVIS INDICATIONS: blunt trauma and fall TECHNIQUE: MDCT axial chest images were obtained with IV contrast in the arterial phase. Maximum intensity projections and multiplanar reformats were obtained. MDCT axial abdomen and pelvis images were obtained with IV contrast in the portal venous phase. Multiplanar reformats were obtained. Optional delayed phase scanning may also be obtained Advanced techniques were used to lower patient radiation exposure. COMPARISON:None. FINDINGS Image Quality: Diagnostic Chest: Lungs and pleura: No pneumothorax or hemothorax. No pulmonary contusions or lacerations. No solid pulmonary nodule requiring follow-up. More focal atelectasis at the medial left lower lobe. Vascular: No dissection or pseudoaneurysm. No incidental central pulmonary embolism. No hemopericardium. Mediastinum: No mediastinum hematoma. No suspicious mass or lymph nodes. No actionable thyroid nodules. Chest wall: Intact clavicles, scapula, and glenohumeral joint. No displaced rib fractures. Thoracic spine: No acute fracture or traumatic subluxation. ABDOMEN and PELVIS: Liver: No laceration or capsular hematoma. Gallbladder: Unremarkable. Biliary system: Non-dilated. Pancreas: Unremarkable. Spleen: No laceration or capsular hematoma. Borderline enlarged at 13 cm. Adrenals: No suspicious nodules. Kidneys: No contrast extravasation or hydronephrosis. No solid masses. Left mid suspected renal cyst Vessels and lymph nodes: No pathology lymph nodes by size criteria. No dissection or aneurysm. No retroperitoneal hematoma. Bowel and peritoneum: No suspicious region of mesenteric hemorrhage or hemoperitoneum. No bowel obstruction. Rectosigmoid suture lines. Small areas of anterior peritoneal calcifications likely from prior fat necrosis. Pelvis: Unremarkable bladder. Pelvic ring and femurs: No pelvic ring disruption. No hip fractures. Lumbar spine: No acute fracture or traumatic subluxation. Abdominal wall: Postsurgical changes. Small fat containing umbilical hernia and periumbilical hernia. Small fat containing inguinal hernias also seen. IMPRESSION: No acute traumatic injury to the chest, abdomen, or pelvis. Other incidental findings above. Dictated by: Travis Cheney M.D. on 10/31/2024 at 11:53 Approved by: Travis Cheney M.D. on 10/31/2024 at 12:00
--- NOTE | 2024-10-31 11:56 | DI.CT.S_ITS ---
PROCEDURE: CT CERVICAL SPINE WO CON INDICATIONS: trauma TECHNIQUE: Noncontrast 3 mm thick sections acquired from the skull base to the T4 level. Sagittal and coronal reformats were then constructed. For radiation dose reduction, the following was used: automated exposure control, adjustment of mA and/or kV according to patient size. COMPARISON: None. FINDINGS: Image quality: Diagnostic Bones: Moderate multilevel spondylosis, with disc space height loss most significant at C3-C4. Vertebral body heights are well maintained. No traumatic subluxation. There is overall straightening of the normal cervical lordosis. Soft tissues: No apical pneumothorax. No pathologic prevertebral swelling. IMPRESSION: No displaced fracture or traumatic subluxation. Moderate spondylosis. If there is high concern for further derangement, consider MRI evaluation. Dictated by: Travis Cheney M.D. on 10/31/2024 at 11:26 Approved by: Travis Cheney M.D. on 10/31/2024 at 11:28
--- NOTE | 2024-10-31 11:56 | DI.CT.S_ITS ---
PROCEDURE: CT HEAD/BRAIN WO CON INDICATIONS: trauma TECHNIQUE: Noncontrast 4.5 mm thick angled axial sections acquired from the foramen magnum to the vertex, with coronal and sagittal reformats. For radiation dose reduction, the following was used: automated exposure control, adjustment of mA and/or kV according to patient size. COMPARISON: None. FINDINGS: Image quality: Diagnostic CSF spaces: Basal cisterns are patent. Lateral ventricles are symmetric. Volume: Mild volume loss Brain: No acute intracranial hemorrhage. No gross loss of bowles-white differentiation. Falx dystrophic calcifications seen anteriorly. Craniofacial structures: No significant paranasal sinus opacity. Possible hypoplastic versus postsurgical changes of the mastoids. Mild fluid is seen on the left. IMPRESSION: No acute intracranial hemorrhage. Dictated by: Travis Cheney M.D. on 10/31/2024 at 11:25 Approved by: Travis Cheney M.D. on 10/31/2024 at 11:26
--- NOTE | 2024-10-31 12:04 | ED.GENADULT ---
HPI - General Adult General Chief complaint: Trauma Stated complaint: 12 packs of cans fell on upper body, glf Time Seen by Provider: 10/31/24 11:42 Source: patient Mode of arrival: Ambulatory History of Present Illness HPI narrative: 48-year-old gentleman was at work today unloading 12 packs of soda onto a Pallet. The packs of soda became unstable, fell on him, multiple of them caused him caused him to fall backward and trip over the palate itself. He landed on his back and hit his head. He was able to stand up he presents see a triage slightly confused with multiple areas of pain. Standby trauma was called Related Data Home Medications ?Medication ?Instructions ?Recorded ?Confirmed lamotrigine 100 mg tablet 100 mg PO BID ##0 10/08/16 04/20/18 (Lamictal) citalopram 10 mg tablet 20 mg PO DAILY 04/20/18 04/20/18 furosemide 80 mg tablet 80 mg PO DAILY 04/20/18 04/20/18 lorazepam 0.5 mg tablet 0.5 mg PO DAILY 04/20/18 04/20/18 metoprolol tartrate 50 mg tablet 75 mg PO DAILY 04/20/18 04/20/18 Previous Rx's ?Medication ?Instructions ?Recorded albuterol sulfate 90 mcg/actuation 2 puff INH QID #1 ea 04/19/17 aerosol inhaler (Ventolin HFA) amoxicillin 875 mg-potassium 1 tab PO BID #14 tabs 06/22/18 clavulanate 125 mg tablet (Augmentin) tramadol 50 mg tablet 50 mg PO Q6H PRN pain #14 tabs 06/22/18 cyclobenzaprine 10 mg tablet 10 mg PO TID PRN muscle spasm #20 03/28/24 tabs methylprednisolone 4 mg tablets in See Rx Instructions PO .COMPLEX 03/28/24 a dose pack (Medrol (Rosalio)) #21 ea oxycodone-acetaminophen 5 mg-325 1 tab PO Q6H PRN pain #20 tabs 10/31/24 mg tablet Allergies Allergy/AdvReac Type Severity Reaction Status Date / Time pineapple (PINEAPPLE) Allergy Unknown Swelling Verified 10/31/24 11:53 of Lip/Tongue/Throat Review of Systems Review of Systems Narrative: Pertinent positive and negative findings as per HPI Patient History Medical History (Updated 10/31/24 @ 14:50 by Connie Fu MD) Colostomy present Depression Hypertension Kidney stone Diverticulitis of colon with perforation Social History Smoking Status: Never smoker Smoking Status: Never smoker alcohol intake frequency: 0-2 drinks per day Exam Initial Vital Signs Initial Vital Signs: Vital Signs Temperature 97.0 F L 10/31/24 11:53 Pulse Rate 83 10/31/24 11:53 Respiratory Rate 18 10/31/24 11:53 Blood Pressure 138/66 10/31/24 11:53 Pulse Oximetry 97 10/31/24 11:53 Oxygen Delivery Method Room Air 10/31/24 11:53 General: Somewhat dazed, pale, diaphoretic, GCS 14 HEENT: Moist mucous membranes, normal sclera with reactive pupils, Neck: Midline tenderness noted Spine: Tenderness lower thoracic spine and significant tenderness over lower lumbar spine. Respiratory: Lungs are clear to auscultation, he is splinting secondary to pain and has pain with compression of his thorax Cardiac: Regular rate and rhythm no murmurs no bruits Abdomen: Soft, significant tenderness entire abdomen, no obvious bruising Skin: pale,diaphoretic Neurologic: Grossly moving all extremities, did walk into triage, confused, slowed difficulty with the answering direct questions Extremities: Obvious trauma or contusion Course Orders Ordered: ED Orders 10/31/24 11:53 CT Trauma Chest Abdomen Pelvis Stat 10/31/24 11:55 Complete Blood Count AUTO DIFF Stat Comprehensive Metabolic Panel Stat Lactate (Lactic Acid) Stat Lipase Stat PTT Partial Thromboplastin Cyrus Stat Prothrombin Time INR Stat 10/31/24 11:56 CT cervical spine wo con Stat CT head/brain wo con Stat Hydromorphone HCl (Hydromorphone 0.5 Mg Inj) 0.5 mg IV Q15MIN PRN PRN Reason: Pain, Last Admin: 10/31/24 12:25 Dose: 0.5 mg Documented By: KW Discontinued Medications Ketorolac Tromethamine (Ketorolac 30 Mg/Ml Vial) 15 mg IV NOW ONE Stop: 10/31/24 13:46 Last Admin: 10/31/24 13:55 Dose: 15 mg Documented By: Ondansetron HCl (Ondansetron 4 Mg/2 Ml Inj) 4 mg IV NOW ONE Stop: 10/31/24 11:54 Last Admin: 10/31/24 12:37 Dose: Not Given Documented By: JESSICA Oxycodone/Acetaminophen (Oxycodone/Acetaminophen 5/325 Tablet) 1 tab PO NOW ONE Stop: 10/31/24 13:46 Last Admin: 10/31/24 13:55 Dose: 1 tab Documented By: Vital Signs Vital signs: Vital Signs - 8 hr 10/31/24 11:53 Temperature 97.0 F L Pulse Rate 83 Respiratory Rate 18 Blood Pressure 138/66 Pulse Oximetry 97 Oxygen Delivery Method Room Air Medical Decision Making Lab Data 10/31/24 11:55 10/31/24 11:55 Labs: Lab Results 10/31/24 Range/Units 11:55 WBC 7.5 (4.5-11.0) X10^3/uL RBC 4.97 (4.5-5.9) X10^6/uL Hgb 14.2 (13.5-17.5) g/dL Hct 41.6 (41-53) % MCV 83.8 (80-100) fL MCH 28.6 (26-34) PG MCHC 34.1 (30-36) % RDW 15.0 H (11.6-14.8) % Plt Count 194 (150-400) X10^3/uL Neut % (Auto) 67.1 (50-75) % Lymph % (Auto) 25.9 (25-40) % [place] % (Auto) 5.4 (3-14) % Eos % (Auto) 0.9 L (2-4) % Baso % (Auto) 0.7 (0-2) % Neut # (Auto) 5000 (3647-6641) /uL Lymph # (Auto) 1900 (4789-1587) /uL [place] # (Auto) 400 (0-900) /uL Eos # (Auto) 100 (0-450) /uL Baso # (Auto) 100 (0-100) /uL PT 11.9 (9.4-12.5) SECONDS INR 1.1 (0.9-1.3) APTT 30 (25.1-36.5) SECONDS Sodium 138 (137-145) mmol/L Potassium 4.2 (3.4-5.1) mmol/L Chloride 108 H (98-107) mmol/L Carbon Dioxide 21 L (22-32) mmol/L BUN 21 H (9-20) mg/dL Creatinine 0.98 (0.66-1.25) mg/dL Estimated GFR > 60 (>60) mL/min BUN/Creatinine Ratio 21.4 (6-22) Glucose 106 H (70-99) mg/dL Lactate 1.4 (0.7-2.1) mmol/L Calcium 9.4 (8.4-10.2) mg/dL Total Bilirubin 0.5 (0.2-1.3) mg/dL AST 34 (17-59) IU/L ALT 33 (<50) IU/L Alkaline Phosphatase 77 (38-126) U/L Total Protein 7.5 (6.3-8.2) g/dL Albumin 4.3 (3.5-5.0) g/dL Globulin 3.2 (1.7-4.1) g/dL Albumin/Globulin Ratio 1.3 (1.0-2.8) Lipase 70 (23-300) U/L Imaging Data CT chest abdomen and pelvis: Radiologist's Impression: PROCEDURE: CT TRAUMA CHEST ABDOMEN PELVIS INDICATIONS: blunt trauma and fall TECHNIQUE: MDCT axial chest images were obtained with IV contrast in the arterial phase. Maximum intensity projections and multiplanar reformats were obtained. MDCT axial abdomen and pelvis images were obtained with IV contrast in the portal venous phase. Multiplanar reformats were obtained. Optional delayed phase scanning may also be obtained Advanced techniques were used to lower patient radiation exposure. COMPARISON:None. FINDINGS Image Quality: Diagnostic Chest: Lungs and pleura: No pneumothorax or hemothorax. No pulmonary contusions or lacerations. No solid pulmonary nodule requiring follow-up. More focal atelectasis at the medial left lower lobe. Vascular: No dissection or pseudoaneurysm. No incidental central pulmonary embolism. No hemopericardium. Mediastinum: No mediastinum hematoma. No suspicious mass or lymph nodes. No actionable thyroid nodules. Chest wall: Intact clavicles, scapula, and glenohumeral joint. No displaced rib fractures. Thoracic spine: No acute fracture or traumatic subluxation. ABDOMEN and PELVIS: Liver: No laceration or capsular hematoma. Gallbladder: Unremarkable. Biliary system: Non-dilated. Pancreas: Unremarkable. Spleen: No laceration or capsular hematoma. Borderline enlarged at 13 cm. Adrenals: No suspicious nodules. Kidneys: No contrast extravasation or hydronephrosis. No solid masses. Left mid suspected renal cyst Vessels and lymph nodes: No pathology lymph nodes by size criteria. No dissection or aneurysm. No retroperitoneal hematoma. Bowel and peritoneum: No suspicious region of mesenteric hemorrhage or hemoperitoneum. No bowel obstruction. Rectosigmoid suture lines. Small areas of anterior peritoneal calcifications likely from prior fat necrosis. Pelvis: Unremarkable bladder. Pelvic ring and femurs: No pelvic ring disruption. No hip fractures. Lumbar spine: No acute fracture or traumatic subluxation. Abdominal wall: Postsurgical changes. Small fat containing umbilical hernia and periumbilical hernia. Small fat containing inguinal hernias also seen. IMPRESSION: No acute traumatic injury to the chest, abdomen, or pelvis. Other incidental findings above. Dictated by: Travis Cheney M.D. on 10/31/2024 at 11:53 MDM Narrative Medical decision making narrative: CC: Palate of stacked 12 count boxes of soda fell directly on him then he stumbled over a Pallet landing on his back and hitting his head Complicating co-morbidities: Hypertension Data collected from: patient Social determinants of health that may influence the patients condition: Injury occurred at work Differential considered: Traumatic brain injury, intracranial hemorrhage, orthopedic injuries, rib fractures, all sequelae of blunt trauma to the abdomen and torso Exam documented above, pertinent findings include: GCS of 14, slightly dazed, tenderness of the back of his head on lower thoracic portion of the spine and lumbar area, significantly tender abdomen no obvious bruises, contusions or orthopedic injuries Lab Test results independently reviewed as above. Pertinent findings: CBC is unremarkable with hemoglobin at 14.2 Chemistries with no significant abnormal Lipase of 70 Imaging studies independently reviewed: CT of the head shows no hemorrhage or fracture CT of the cervical spine no displaced fractures or traumatic subluxation appreciated Treatments: Initial point mg of Dilaudid. IV Toradol when Percocet Re-evaluations: is in the room, patient was re-evaluate he seems much more appropriate with the mild initial confusion seemingly resolved at this point Discussion: 48-year-old gentleman who had a stack of heavy blocks as soda cans fall on him then he tripped and fell backward hitting his back in his head. Imaging studies of the head, CT, chest, abdomen and pelvis do not show intracranial hemorrhage, any new fractures, broken ribs, hemo or pneumothorax, no intra-abdominal bleeding or liver laceration. We discussed aches and pains that are going to be more over the next couple of days. We also talked about concussion and postconcussion syndrome. Given the concussion I am going to recommend a week off work for cognitive rest. L and I forms are filled out. Findings and results were clearly reviewed with the patient in his with questions answered. There was no indication for further imaging or hospitalization and he is safe for discharge Discharge Plan Departure Patient Disposition: Home Clinical Impression: Blunt trauma of multiple sites of trunk Blunt abdominal trauma Qualifiers: Encounter type: initial encounter Qualified Code(s): S39.91XA - Unspecified injury of abdomen, initial encounter Concussion Qualifiers: Encounter type: initial encounter Loss of consciousness presence/duration: without LOC Qualified Code(s): S06.0X0A - Concussion without loss of consciousness, initial encounter Instructions: DI for Trauma, DI for Postconcussion Syndrome Activity Restrictions/Additional Instructions: Thank you for coming in today Having that many curtains of soda fall on you is significant amount of trauma. Fortunately, CT scans of your head, neck, chest, abdomen and pelvis do not show any broken bones, internal bleeding, or organ damage or reasons for hospital stay. You are going to be more sore in multiple places over the next 48 hours and should begin to improve after that. Making sure that you are getting up and walking around does help overall and healing. Using 400 mg of ibuprofen (2 [id number] pills) and 1 Tylenol every 6 hours can be very helpful in controlling pain. For severe pain you can use 400 mg of ibuprofen and 1 Percocet. Percocet is a narcotic and will cause constipation. Please make sure that you are taking a stool softener The prescription was electronically transmitted to [facility] in [place] I have filled out your L and I paperwork and suggested that you return to work on November 10. If you find that you are getting worse or develop any new symptoms, please feel free to return to the emergency department for further evaluation. Prescriptions: New oxycodone-acetaminophen 5-325 mg tablet 1 tab PO Q6H PRN (Reason: pain) Qty: 20 0RF No Action lamotrigine [Lamictal] 100 MG tablet 100 mg PO BID Qty: 0 albuterol sulfate [Ventolin HFA] 90 MCG/PUFF HFA aerosol inhaler 2 puff INH QID Qty: 1 0RF tramadol 50 mg tablet 50 mg PO Q6H PRN (Reason: pain) Qty: 14 0RF amoxicillin-pot clavulanate [Augmentin] 875-125 mg tablet 1 tab PO BID Qty: 14 0RF citalopram 10 mg tablet 20 mg PO DAILY Patient Comments: TK 1 T PO D furosemide 80 mg tablet 80 mg PO DAILY Patient Comments: TAKE 1 TABLET BY MOUTH 2 TIMES A DAY lorazepam 0.5 mg tablet 0.5 mg PO DAILY metoprolol tartrate 50 mg tablet 75 mg PO DAILY cyclobenzaprine 10 mg tablet 10 mg PO TID PRN (Reason: muscle spasm) Qty: 20 0RF methylprednisolone [Medrol (Rosalio)] 4 mg tablets,dose pack See Rx Instructions .ROUTE .COMPLEX Qty: 21 0RF Rx Instructions: for 6 days Stand Alone Forms: Patient Portal/API
[2024-10-31 12:06] LABS: Add Manual Diff / Slide Review NO; Basophils Absolute Auto 100 /uL (0-100); Basophils Percent Auto 0.7 % (0-2); Eosinophils Absolute Auto 100 /uL (0-450); Eosinophils Percent Auto 0.9 % (2-4); Hematocrit 41.6 % (41-53); Hemoglobin 14.2 g/dL (13.5-17.5); Lymphocytes Absolute Auto 1900 /uL (1100-4500); Lymphocytes Percent Auto 25.9 % (25-40); Mean Corpuscular HGB Conc 34.1 % (30-36); Mean Corpuscular Hemoglobin 28.6 PG (26-34); Mean Corpuscular Volume 83.8 fL (80-100); Monocytes Absolute Auto 400 /uL (0-900); Monocytes Percent Auto 5.4 % (3-14); Neutrophils Absolute Auto 5000 /uL (1500-7000); Neutrophils Percent Auto 67.1 % (50-75); Platelet Count 194 X10^3/uL (150-400); Red Blood Cell Count 4.97 X10^6/uL (4.5-5.9); White Blood Cell Count 7.5 X10^3/uL (4.5-11.0)
[2024-10-31 12:14] LABS: PTT Partial Thromboplastin Tim 30 SECONDS (25.1-36.5)
[2024-10-31 12:20] LABS: Alanine Aminotransferase 33 IU/L (<50); Albumin 4.3 g/dL (3.5-5.0); Albumin Globulin Ratio 1.3 (1.0-2.8); Alkaline Phosphatase 77 U/L (38-126); Aspartate Aminotransferase 34 IU/L (17-59); BUN Creatinine Ratio 21.4 (6-22); Bilirubin Total 0.5 mg/dL (0.2-1.3); Blood Urea Nitrogen 21 mg/dL (9-20); Calcium 9.4 mg/dL (8.4-10.2); Carbon Dioxide 21 mmol/L (22-32); Chloride 108 mmol/L (98-107); Estimated Glomerular Filt Rate > 60 mL/min (>60); Globulin 3.2 g/dL (1.7-4.1); Glucose 106 mg/dL (70-99); HEMOLYSIS < 15 (0-50); Lactate (Lactic Acid) 1.4 mmol/L (0.7-2.1); Lipase 70 U/L (23-300); Potassium 4.2 mmol/L (3.4-5.1); Sodium 138 mmol/L (137-145); Total Protein 7.5 g/dL (6.3-8.2)
[2024-10-31 12:21] LABS: INR 1.1 (0.9-1.3); Prothrombin Time 11.9 SECONDS (9.4-12.5)
[2024-10-31] MEDS: HYDROMORPHONE 0.5 MG INJ IV (12:25)
[2024-10-31] MEDS: KETOROLAC 30 MG/ML VIAL 15 MG IV (13:55)
[2024-10-31] MEDS: OXYCODONE/ACETAMINOPHEN 5/325 TABLET 1 TAB PO (13:55)
== END 2024-10-31 15:06 | disposition home or self-care (01) ==
PROVIDERS: Emergency Provider Emergency Medicine
DX: S06.0X0A Concussion without loss of consciousness, initial encounter (principal); S39.91XA Unspecified injury of abdomen, initial encounter; S39.92XA Unspecified injury of lower back, initial encounter; R40.2412 Glasgow coma scale score 13-15, at arrival to emergency department; W01.10XA Fall on same level from slipping, tripping and stumbling with subsequent striking against unspecified object, initial encounter
CPT/HCPCS: 36415; 70450; 71275; 72125; 74177; 80053; 83605; 83690; 85025; 85610; 85730; 96374; 96375; 99284; J1171; J1885; Q9967